=== PATIENT | female | born 1990 | race Caucasian/White ===

== ENCOUNTER 2017-03-17 15:47 | Emergency (ER) | payer OTHER ==
[2017-03-17] MEDS ORDERED: HYDROCODONE/ACETAMINOPHEN 5-325 MG 6 TAB/DSPK PO PRN (16:48)
--- NOTE | 2017-03-17 16:52 | ER Document Report ---
ED Head/Face/Scalp Injury - General Chief Complaint: Nose Pain Stated Complaint: NOSE PAIN Time Seen by Provider: 03/17/17 16:38 Mode of Arrival: Ambulatory Information source: Patient Notes: 27-year-old female presented to ED for injury to her nose and bruising after her dog jumped up injuring her nose today. TRAVEL OUTSIDE OF THE [place] IN LAST 30 DAYS: No - HPI Patient complains to provider of: Pain, Swelling Injury to: Nose Location of problem: Nose Occurred: This afternoon Where: Home Timing: Still present Context: Other - Dog jumped up hitting her nose Loss consciousness: No loss of consciousness Remembers: Injury, Coming to hospital - Related Data Allergies/Adverse Reactions: sulfamethoxazole [From Bactrim] Allergy (Verified 03/17/17 15:56) trimethoprim [From Bactrim] Allergy (Verified 03/17/17 15:56) Past Medical History - General Information source: Patient - Social History Smoking Status: Former Smoker Cigarette use (# per day): No Chew tobacco use (# tins/day): No Smoking Education Provided: No Frequency of alcohol use: None Drug Abuse: None Occupation: From home for [employer] Lives with: Alone - With her son Family History: Arthritis, DM, Hyperlipidemia, Hypertension, Malignancy. denies : CAD, COPD, CVA, Thyroid Disfunction Patient has suicidal ideation: No Patient has homicidal ideation: No - Past Medical History Cardiac Medical History: Reports: None Pulmonary Medical History: Reports: None EENT Medical History: Reports: None Neurological Medical History: Reports: None Endocrine Medical History: Reports: None Renal/ Medical History: Reports: Other - Reflux as an infant was repainting of both ureters Malignancy Medical History: Reports: None GI Medical History: Reports: None Musculoskeltal Medical History: Reports Hx Musculoskeletal Deformity, Reports Hx Musculoskeletal Trauma Skin Medical History: Reports None Psychiatric Medical History: Reports: Hx Post Traumatic Stress Disorder Traumatic Medical History: Reports: Hx Fractures - Ankle wrist fingers toes arms Infectious Medical History: Reports: None Past Surgical History: Reports: Hx Breast Surgery - Breast augmentation, Hx Dilation and Curettage - Immunizations Immunizations up to date: Yes Review of Systems - Review of Systems Constitutional: No symptoms reported EENT: Nose pain - And bruising Cardiovascular: No symptoms reported Respiratory: No symptoms reported Gastrointestinal: No symptoms reported Genitourinary: No symptoms reported Female Genitourinary: No symptoms reported Musculoskeletal: No symptoms reported Skin: No symptoms reported Hematologic/Lymphatic: No symptoms reported Neurological/Psychological: No symptoms reported Physical Exam - Vital signs Vitals: Temp Pulse Resp BP Pulse Ox 98.2 F 90 16 138/79 H 97 03/17/17 15:56 03/17/17 15:56 03/17/17 15:56 03/17/17 15:56 03/17/17 15:56 Interpretation: Normal - General General appearance: Appears well, Alert - HEENT Head: Ecchymosis - the nose, Tenderness - Nose Eyes: Normal Pupils: PERRL Ears: Normal External canal: Normal Tympanic membrane: Normal Sinus: Normal Nasal: Bloody discharge - Dried blood, Ecchymosis, Swelling. No: Purulent discharge, Septal hematoma, Clear rhinorrhea Mouth/Lips: Normal Mucous membranes: Normal Pharynx: Normal Neck: Normal - Respiratory Respiratory status: No respiratory distress Chest status: Nontender Breath sounds: Normal Chest palpation: Normal - Cardiovascular Rhythm: Regular Heart sounds: Normal auscultation Murmur: No - Abdominal Inspection: Normal Distension: No distension Bowel sounds: Normal Tenderness: Nontender Organomegaly: No organomegaly - Back Back: Normal, Nontender - Extremities General upper extremity: Normal inspection, Nontender, Normal color, Normal ROM , Normal temperature General lower extremity: Normal inspection, Nontender, Normal color, Normal ROM , Normal temperature, Normal weight bearing. No: Mauricio's sign - Neurological Neuro grossly intact: Yes Cognition: Normal Orientation: AAOx4 Noam Coma Scale Eye Opening: Spontaneous Noam Coma Scale Verbal: Oriented Noam Coma Scale Motor: Obeys Commands [place] Coma Scale Total: 15 Speech: Normal Motor strength normal: LUE, RUE, LLE, RLE Sensory: Normal - Psychological Associated symptoms: Normal affect, Normal mood - Skin Skin Temperature: Warm Skin Moisture: Dry Skin Color: Normal Course - Re-evaluation Re-evalutation: 03/18/17 02:26 Patient treated with [place]rie dispense pack [place] when the swelling decreases. - Vital Signs Vital signs: Temp Pulse Resp BP Pulse Ox 98.0 F 91 16 116/76 100 03/17/17 17:29 03/17/17 17:29 03/17/17 17:29 03/17/17 17:29 03/17/17 17:29 Discharge - Discharge Clinical Impression: Nasal contusion Qualifiers: Encounter type: initial encounter Qualified Code(s): S00.33XA - Contusion of nose, initial encounter Condition: Stable Disposition: HOME, SELF-CARE Additional Instructions: Contusion Your injury has resulted in a contusion -- a crushing of the deep tissues. No injury to important structures was detected during the physician's exam. Contusions vary in the amount of pain they cause, and in the length of time required for healing. Typically, the area will become bruised, and will remain painful to touch for two or three weeks. However, most patients are back to working and playing within a few days. After the initial period of rest and cold-packs, your symptoms (together with the doctor's recommendations) will determine how rapidly you can get back to full activity. Usually this means "do what feels okay, but don't do things that hurt." If re-examination was recommended, it's important to follow up as instructed. Call the doctor or return any time if pain increases, if swelling becomes severe, if you develop numbness or weakness in an injured extremity, or if any other alarming symptoms occur. Ibuprofen Ibuprofen is an excellent, safe drug for pain control. In addition, it has potent antiinflammatory effects which are beneficial, especially in the treatment of injuries, arthritis, or tendonitis. It's best to take ibuprofen with food. Persons with ulcer disease or allergy to aspirin should notify their physician of this before taking ibuprofen. Take the medication exactly as prescribed. Don't take additional doses unless instructed to do so by your doctor. If you develop wheezing, shortness of breath, hives, faintness, stomach pain, vomiting, or dark black stools, return for re-evaluation at once. Ice Packs Apply ice packs frequently against the painful area. Many different schedules are recommended, such as "20 minutes on, 20 minutes off" or "one hour ice, two hours rest." If you need to work, you may need to go longer between ice treatments. You should plan to have the area ice packed AT LEAST one fourth of the time. The ice should be applied over the wrap, tape, or splint, or over a layer of cloth -- not directly against the skin. Some ice bags have a built-in cloth and can be put directly on the skin. Oral Narcotic Medication You have been given a Erie dispense back for pain control. This medication is a narcotic. It's best taken with food, as nausea can result if taken on an empty stomach. Don't operate machinery or drive within six hours of taking this medication. Do not combine this medicine with alcohol, or with any medication which can cause sedation (such as cold tablets or sleeping pills) unless you get permission from the physician. Narcotics tend to cause constipation. If possible, drink plenty of fluids and eat a diet high in fiber and fruits. FOLLOW-UP CARE: Call your primary doctor today and have them schedule a consult for a ENT doctor for your nose follow-up If you have been referred to a physician for follow-up care, call the physician s office for an appointment as you were instructed or within the next two days. If you experience worsening or a significant change in your symptoms, notify the physician immediately or return to the Emergency Department at any time for re-evaluation. Forms: Elevated Blood Pressure
[2017-03-17 17:33] VITALS: BP 116/76
== END 2017-03-17 17:29 | disposition home or self-care (01) ==
LOC: ER 15:47
DX: S00.33XA Contusion of nose, initial encounter (principal); W54.1XXA Struck by dog, initial encounter; Z88.3 Allergy status to other anti-infective agents
CPT/HCPCS: 99283

== ENCOUNTER 2017-07-25 08:04 | Day surgery (SDC) | payer OTHER ==
[~2017-07-25 08:04] MED LIST: CEFAZOLIN 1 GM/D5W RTU 1 GM/50 ML RTUPB IV PRN
[2017-07-25] MEDS ORDERED: BUPIVACAINE HCL 0.5%/EPI 1:200000 INJ 1.8 ML CARTRIDGE ONE ×2 (09:04→10:34)
[2017-07-25] MEDS ORDERED: OXYMETAZOLINE HCL 0.05% NASAL SPRAY 15 ML BOTTLE ONE (09:04)
[2017-07-25] MEDS ORDERED: MINERAL OIL (STERILE) 10 ML VIAL ONE (09:40)
[2017-07-25] MEDS ORDERED: SCOPOLAMINE HYDROBROMIDE 1.5 MG PATCH.TD72 TD PRN (10:11)
[2017-07-25] MEDS ORDERED: LIDOCAINE 0.5% INJ-PF (5 MG/ML) 50 ML SDV SUBCUT PRN (10:12)
[2017-07-25] MEDS ORDERED: RINGERS SOLUTION,LACTATED 1,000 ML IV PRN (10:13)
[2017-07-25] MEDS ORDERED: BUPIVACAINE HCL 0.5%-EPI 1:200000 INJ/PF 30 ML VIAL ONE (10:33)
[2017-07-25] MEDS ORDERED: OXYCODONE-ACETAMINOPHEN 5-325 MG TABLET ONE (14:27)
--- NOTE | 2017-07-30 21:24 | SURGICARE OPERATIVE REPORT E ---
[facility] Operative Report NAME: HUBER GRIFFIN AGE: 27Y DATE OF SURGERY: 07/25/2017 ROOM: PREOPERATIVE DIAGNOSIS: 1. NASAL DEFORMITIES, ACQUIRED. 2. NASAL SEPTAL DEVIATION, ACQUIRED. 3. CHRONIC NASAL DYSPNEA. 4. CHRONIC NASAL PAIN. 5. BILATERAL INFERIOR TURBINATE HYPERTROPHY. POSTOPERATIVE DIAGNOSIS: 1. NASAL DEFORMITIES, ACQUIRED. 2. NASAL SEPTAL DEVIATION, ACQUIRED. 3. CHRONIC NASAL DYSPNEA. 4. CHRONIC NASAL PAIN. 5. BILATERAL INFERIOR TURBINATE HYPERTROPHY. OPERATION: 1. Endonasal septorhinoplasty addressing the bony pyramid as well as the lower cartilages with cartilage grafts and nasal tip complex elevation and stabilization. 2. Bilateral inferior turbinate reduction using a submucous resection technique. SURGEON: ALLIE RAMSEY D.O. ANESTHESIA: General endotracheal tube. ANESTHESIA STAFF: HEIDY ESTIMATED BLOOD LOSS: 75 mL IV FLUIDS: 1300 mL COMPLICATIONS: None. DRAINS: None. INSTRUMENT COUNTS: Sponge count verified. Needle count verified. MATERIALS FORWARDED SPECIMEN: None. FINDINGS: 1. Nasal deformities involving bone and cartilage. 2. Nasal septal deviation involving bone and cartilage along with a septal spur. 3. Nasal valve collapse bilateral. 4. Left nasal piercing site. 5. Bulbous/full nasal tip complex. 6. Bilateral inferior turbinate hypertrophy. INDICATION FOR PROCEDURE: This is a 27-year-old white female who was seen and evaluated in the [facility] office. The patient had been referred for and she complained of a history of chronic nasal dyspnea over the years, history of nasal trauma with resulting nasal deformities and chronic nasal pain. The patient denies history of chronic or acute recurrent sinus disease. The patient has desired to undergo nasal surgery over the years to improve functional nasal airflow and to address nasal deformities. After extensive discussion with the patient, recommendations and plan were made to proceed with an endonasal septorhinoplasty and bilateral inferior turbinate reduction using a submucous resection technique. The procedures and all of their risks and complications were all discussed in detail with the patient. She voiced an understanding of the described surgical plan, agreed to proceed, and consent was obtained. PROCEDURE: The patient was taken to the main operating room and placed on the operating room tablet in the supine position. Appropriate monitors were placed. Using mask and IV access, general anesthesia was induced. The patient was next transorally intubated without difficulty. The patient and table were positioned for nasal surgery. Patient underwent a nasal examination with injection of local anesthetic with epinephrine to establish a nasal block. Two Afrin-soaked neuro patties were placed per nasal passage. The patient was then prepped and draped in the usual fashion for nasal and turbinate surgery. At this point, the Afrin-soaked neuro patties were removed. The patient underwent a hemitransfixion incision with elevation of the mucoperichondrial and mucoperiosteal flaps without difficulty. The bony cartilaginous junction was divided and the most deviated portions of septal cartilage and bone were removed. The septal spur was removed without difficulty. There was a greater than 1.5 x 1.5 cm cartilaginous L-strut that was preserved. At this point, the turbinate bipolar wand was used to make 2 passes in each inferior turbinate. The anterior aspect was entered with a pair of Allan scissors followed by elevation of tissue in the submucosal plane with a Ephraim elevator. A turbinate microdebrider system at a setting of 1500 rpm was used to perform submucous resection on each side. This was followed by use of a [place] elevator to outfracture each inferior turbinate. Next, the most redundant/excessive portions of mucosa were trimmed and the margins were reapproximated with chromic suture. At this point, the rhinoplasty portion of the case was addressed in the following manner. There were modified marginal incisions created on each side followed by elevation of tissue in a subperichondrial and subperiosteal plane. There were precise pockets created for the alar mitzy grafts. The right lower lateral cartilage was with excessive inward curvature which was released and removed without difficulty. At this point, there was dorsal rasp work which was performed to address the bony nasal pyramid deformities. A #11 blade scalpel was also used to recontour the cartilaginous nasal dorsum. Once complete, cartilage that was previously harvested was fashioned into alar mitzy grafts which were placed into their precise pocket on each side. On the right side, the lower lateral cartilage was stabilized to the background with 6-0 Prolene suture. Once complete, there were Telfa patties that were used as bolsters overlying the nasal mucosa and external nasal skin, as the lower lateral cartilages and grafts were secured in place with through and through *------* suture. The nose was then irrigated and suctioned and there was reasonable hemostasis noted. Previously removed and remaining cartilage was placed back between the mucosal flaps to be banked. All incisions at this point were reapproximated with chromic suture. There was 1 De La Cruz silicon nasal splint with Bacitracin ointment placed per side. These were secured at the caudal aspect with 4-0 Prolene suture. The nose was then cleaned and dried followed by placement of Mastisol and Steri-Strips. The patient was then returned to the anesthesia staff and was allowed to emerge from general anesthesia. The patient was extubated in the main operating room and was then transported to the post anesthesia recovery unit in stable condition. There were no complications. DICTATING PHYSICIAN: ALLIE RAMSEY D.O. [id number] PHY#: [id number] ID: [id number] JOB#: [id number] ACCT: [id number] cc:ALLIE RAMSEY D.O. >
== END 2017-07-25 15:15 | disposition home or self-care (01) ==
LOC: SC 08:04
PROVIDERS: ATTEND Otolaryngology
DX: M95.0 Acquired deformity of nose (principal); S02.2XXA Fracture of nasal bones, initial encounter for closed fracture; X58.XXXA Exposure to other specified factors, initial encounter; J34.2 Deviated nasal septum; R06.09 Other forms of dyspnea; J34.3 Hypertrophy of nasal turbinates; F32.9 Major depressive disorder, single episode, unspecified; Z79.899 Other long term (current) drug therapy
CPT/HCPCS: 30140; 30420; J0690; J3490; 160

== ENCOUNTER 2017-10-07 21:13 | Emergency (ER) | payer OTHER ==
[2017-10-07] MEDS ORDERED: ONDANSETRON 4 MG TAB.RAPDIS PO ONE (22:04)
[2017-10-07] MEDS ORDERED: RINGERS SOLUTION,LACTATED 1,000 ML IV ONE (22:29)
[2017-10-07] MEDS ORDERED: METOCLOPRAMIDE HCL INJ/PF 10 MG/2 ML SDV IV ONE (23:15)
[2017-10-07 23:26] LABS: ALANINE AMINOTRANSFERASE 28 U/L (9-52); ALBUMIN 4.9 g/dL (3.5-5.0); ALKALINE PHOSPHATASE 62 U/L (38-126); ANION GAP 15 (5-19); ASPARTATE AMINO TRANSFERASE 35 U/L (14-36); BILIRUBIN,DIRECT 0.3 mg/dL (0.0-0.4); BILIRUBIN,TOTAL 0.3 mg/dL (0.2-1.3); BLOOD UREA NITROGEN 13 mg/dL (7-20); CALCIUM 9.8 mg/dL (8.4-10.2); CARBON DIOXIDE 24 mmol/L (22-30); CHLORIDE 105 mmol/L (98-107); GLUCOSE 117 mg/dL (75-110); LIPASE 49.3 U/L (23-300); POTASSIUM 4.6 mmol/L (3.6-5.0); SODIUM 144.4 mmol/L (137-145); TOTAL PROTEIN 7.8 g/dL (6.3-8.2)
--- NOTE | 2017-10-07 23:27 | ER Document Report ---
ED General - General Chief Complaint: Nausea/Vomiting Stated Complaint: VOMITING Time Seen by Provider: 10/07/17 22:27 Notes: Patient is a 27-year-old female without chronic medical problems who presents with 24 hours of nausea and vomiting as well as shaking. Patient states that she drank approximately 6 alcoholic beverages last night but when she woke up this morning she noticed severe nausea and shaking. She states any attempt at drinking fluids or eating results in severe vomiting. She also notes that she continues to vomit even without attempts at eating or drinking. She notes a long-standing history of similar symptoms anytime she drinks alcohol. She denies any abdominal pain, weakness, numbness, headache, neck pain or confusion. No vaginal bleeding or discharge. No dysuria. She has not seen her primary doctor regarding today's concerns. She tried Unisom at home to try to improve her symptoms without relief. She notes the symptoms have overall been unchanged since onset. TRAVEL OUTSIDE OF THE [place] IN LAST 30 DAYS: No - Related Data Allergies/Adverse Reactions: sulfamethoxazole [From Bactrim] Allergy (Severe, Verified 10/07/17 21:13) Anaphylaxis trimethoprim [From Bactrim] Allergy (Severe, Verified 10/07/17 21:13) Anaphylaxis Past Medical History - General Information source: Patient - Social History Smoking Status: Never Smoker Chew tobacco use (# tins/day): No Frequency of alcohol use: Occasional Drug Abuse: None Lives with: Spouse/Significant other Family History: Arthritis, DM, Hyperlipidemia, Hypertension, Malignancy. denies : CAD, COPD, CVA, Thyroid Disfunction Patient has suicidal ideation: No Patient has homicidal ideation: No - Past Medical History Cardiac Medical History: Denies: Hx Heart Attack, Hx Hypertension Pulmonary Medical History: Denies: Hx Asthma Neurological Medical History: Denies: Hx Cerebrovascular Accident, Hx Seizures Renal/ Medical History: Denies: Hx Peritoneal Dialysis GI Medical History: Denies: Hx Hepatitis, Hx Hiatal Hernia, Hx Ulcer Musculoskeltal Medical History: Reports Hx Musculoskeletal Deformity, Reports Hx Musculoskeletal Trauma Psychiatric Medical History: Reports: Hx Depression, Hx Post Traumatic Stress Disorder Traumatic Medical History: Reports: Hx Fractures - Ankle wrist fingers toes arms Infectious Medical History: Denies: Hx Hepatitis Past Surgical History: Reports: Hx Breast Surgery, Hx Dilation and Curettage, Hx Kidney (Renal Surgery), Hx Nose Surgery. Denies: Hx Hysterectomy, Hx Mastectomy, Hx Open Heart Surgery, Hx Pacemaker - Immunizations Immunizations up to date: Yes Review of Systems - Review of Systems Notes: Constitutional: Negative for fever. HENT: Negative for sore throat. Eyes: Negative for visual changes. Cardiovascular: Negative for chest pain. Respiratory: Negative for shortness of breath. Gastrointestinal: Negative for abdominal pain, positive for vomiting Genitourinary: Negative for dysuria. Musculoskeletal: Negative for back pain. Skin: Negative for rash. Neurological: Negative for headaches, weakness or numbness. 10 point ROS negative except as marked above and in HPI. Physical Exam - Vital signs Vitals: Temp Pulse BP Pulse Ox 97.4 F 81 124/87 H 100 10/07/17 21:30 10/07/17 21:30 10/07/17 21:30 10/07/17 21:30 Interpretation: Normal Notes: PHYSICAL EXAMINATION: GENERAL: Appears somewhat uncomfortable, tremulous HEAD: Atraumatic, normocephalic. EYES: Pupils equal round and reactive to light, extraocular movements intact, sclera anicteric, conjunctiva are normal. ENT: nares patent, oropharynx clear without exudates. Moderately dry mucous membranes. NECK: Normal range of motion, supple without lymphadenopathy LUNGS: Breath sounds clear to auscultation bilaterally and equal. No wheezes rales or rhonchi. HEART: Regular rate and rhythm without murmurs ABDOMEN: Soft, nontender, normoactive bowel sounds. No guarding, no rebound. No masses appreciated. EXTREMITIES: Normal range of motion, no pitting or edema. No cyanosis. NEUROLOGICAL: No focal neurological deficits. Moves all extremities spontaneously and on command. PSYCH: Moderately anxious SKIN: Warm, Dry, normal turgor, no rashes or lesions noted. Course - Re-evaluation Re-evalutation: 10/07/17 23:20 Patient presents with nausea and vomiting for the past 24 hours after drinking alcohol last evening. She has no focal abdominal tenderness on examination, overall appears nontoxic, vitals within normal limits at the time of my assessment. Patient reports that she has a long-standing history of similar symptoms each time she drinks alcohol and I do wonder if she has an acetaldehyde dehydrogenase deficiency particular given the repetitive nature of the symptoms. Low clinical suspicion for an acute pancreatitis, acute hepatitis , acute cholecystitis, or related pathology given reassuring labs, history and abdominal exam. Patient has been able to tolerate oral intake after receiving antiemetics without difficulty. I have advised her to avoid alcohol consumption the future. At this time will discharge with return precautions and follow-up recommendations. Verbal discharge instructions given a the bedside and opportunity for questions given. Medication warnings reviewed. Patient is in agreement with this plan and has verbalized understanding of return precautions and the need for primary care follow-up in the next 24-72 hours. - Vital Signs Vital signs: Temp Pulse Resp BP Pulse Ox 98.6 F 80 12 101/55 L 100 10/08/17 00:09 10/08/17 00:09 10/08/17 00:09 10/08/17 00:09 10/08/17 00:09 - Laboratory Result Diagrams: 10/07/17 22:53 Laboratory results interpreted by me: 10/07/17 22:53 Glucose 117 H Discharge - Discharge Clinical Impression: Alcohol intolerance Nausea and vomiting Qualifiers: Vomiting type: unspecified Vomiting Intractability: non-intractable Qualified Code(s): R11.2 - Nausea with vomiting, unspecified Condition: Good Disposition: HOME, SELF-CARE Additional Instructions: You have been seen in the Emergency Department (ED) today for nausea and vomiting. You have been prescribed Zofran; please use as prescribed as needed for your nausea. Follow up with your doctor as soon as possible regarding today's emergent visit and your symptoms of nausea. Return to the Emergency Department (ED) if you develop abdominal pain, bloody vomiting, bloody diarrhea, if you are unable to tolerate fluids due to vomiting , or if you develop other symptoms that concern you.
[2017-10-07] MEDS ORDERED: ONDANSETRON ODT 4 MG TAB (6 TAB/ER DISP) PO PRN (23:57)
[2017-10-08 00:15] VITALS: BP 101/55
== END 2017-10-08 00:15 | disposition home or self-care (01) ==
LOC: ER 21:13
DX: R11.2 Nausea with vomiting, unspecified (principal); F41.9 Anxiety disorder, unspecified; Z72.89 Other problems related to lifestyle; Z87.892 Personal history of anaphylaxis; Z88.1 Allergy status to other antibiotic agents
CPT/HCPCS: 99284; 96360; 36415; 83690; 84703; 80053; S0119; J7120

== ENCOUNTER → 2019-10-09 | Outpatient (CLI) | payer OTHER ==
--- NOTE | 2019-10-09 09:48 | RADIOLOGY REPORT (SQ) ---
EXAM DESCRIPTION: CT SOFT TISSUE NECK WITH IMAGES COMPLETED DATE/TIME: 10/09/2019 9:36 am REASON FOR STUDY: LOCALIZED ENLARGED LYMPH NODES (R59.0), SOB (R06.02), CHEST PAIN (R07.9) D72.820 LYMPHOCYTOSIS (SYMPTOMATIC) R06.02 SHORTNESS OF BREATH R07.9 CHEST PAIN, UNSPECIFIED COMPARISON: None. TECHNIQUE: Post IV contrasted scanning from skull base through lung apices with review of bone, soft tissue and lung windows. Reconstructed coronal and sagittal MPR images reviewed. All images stored on PACS. All CT scanners at this facility use dose modulation, iterative reconstruction, and/or weight based d osing when appropriate to reduce radiation dose to as low as reasonably achievable (ALARA). [facility]: Dose Right [facility]: CareDose [facility]: Dose Right [facility]: Teradose 4D [facility]: [place] CONTRAST TYPE AND DOSE: contrast/concentration: Isovue 350.00 mg/ml; Total Contrast Delivered: 80.0 ml; Total Saline Delivered: 55.0 ml RENAL FUNCTION: None required. The patient is less than 50 years old. RADIATION DOSE: . LIMITATIONS: None. FINDINGS: SKULL BASE: Intact. MAJOR SALIVARY GLANDS: No solid or cystic masses. No inflammatory changes. LYMPHADENOPATHY: No adenopathy. MUCOSAL MASSES OR ASYMMETRY: No mucosal masses or asymmetry. LARYNX/CORDS: No abnormal findings. VASCULAR STRUCTURES: The major vessels are patent. LUNG APICES: See separate report of the same date. BONES: Intact. THYROID: Normal size. No masses. PARANASAL SINUSES: Clear. OTHER: No other significant finding. IMPRESSION: NO SIGNIFICANT FINDING IN THE SOFT TISSUES OF THE NECK. TECHNICAL DOCUMENTATION: JOB ID: [id number] Quality ID # [id number]: Final reports with documentation of one or more dose reduction techniques (e.g., Au tomated exposure control, adjustment of the mA and/or kV according to patient size, use of iterative reconstruction technique) 2010 [employer]- All Rights Reserved Reading location - IP/workstation name: [email or web address]
--- NOTE | 2019-10-09 09:53 | RADIOLOGY REPORT (SQ) ---
EXAM DESCRIPTION: CT CHEST WITH IMAGES COMPLETED DATE/TIME: 10/09/2019 9:37 am REASON FOR STUDY: LOCALIZED ENLARGED LYMPH NODES (R59.0), SOB (R06.02), CHEST PAIN (R07.9) D72.820 LYMPHOCYTOSIS (SYMPTOMATIC) R06.02 SHORTNESS OF BREATH R07.9 CHEST PAIN, UNSPECIFIED COMPARISON: None. TECHNIQUE: CT scan of the chest performed using helical scanning technique with dynamic intravenous contrast injection. Images reviewed with lung, soft tissue and bone windows. Reconstructed coronal and sagittal MPR and MIP images reviewed. All images stored on PACS. All CT scanners at this facility use dose modulation, iterative reconstruction, and/or weight based d osing when appropriate to reduce radiation dose to as low as reasonably achievable (ALARA). [facility]: Dose Right [facility]: CareDose [facility]: Dose Right [facility]: Teradose 4D [facility]: [employer] CONTRAST TYPE AND DOSE: See separate report same date. RENAL FUNCTION: None required. The patient is less than 50 years old. RADIATION DOSE: . LIMITATIONS: None. FINDINGS: LUNGS AND PLEURA: No opacities, nodules, masses. No pneumothorax. No effusions. HILAR AND MEDIASTINAL STRUCTURES: No identified masses or abnormal nodes. HEART AND VASCULAR STRUCTURES: No aneurysm or dissection. No central pulmonary emboli. No pericardi al effusion. HARDWARE: None in the chest. UPPER ABDOMEN: No significant findings. Limited exam. THYROID AND OTHER SOFT TISSUES: Breast implants. BONES: No significant finding. OTHER: No other significant finding. IMPRESSION: NORMAL CT OF THE CHEST WITH IV CONTRAST. TECHNICAL DOCUMENTATION: JOB ID: [id number] Quality ID # [id number]: Final reports with documentation of one or more dose reduction techniques (e.g., Au tomated exposure control, adjustment of the mA and/or kV according to patient size, use of iterative reconstruction technique) 2010 [employer]- All Rights Reserved Reading location - IP/workstation name: [email or web address]
== END ==
LOC: RAD 09:09
PROVIDERS: ATTEND Internal Medicine
DX: D72.820 Lymphocytosis (symptomatic) (principal); R06.02 Shortness of breath; R07.9 Chest pain, unspecified; R59.0 Localized enlarged lymph nodes
CPT/HCPCS: 70491; 71260